=== PATIENT | male | born 1980 | race Caucasian/White ===

== ENCOUNTER → 2021-11-28 | Outpatient (CLI) | payer OTHER ==
--- NOTE | 2021-11-28 14:22 | XR ---
EXAMINATION TYPE: XR shoulder complete LT DATE OF EXAM: 11/28/2021 COMPARISON: NONE INDICATION: Lifting injury. Pain TECHNIQUE: 3 views of the left shoulder FINDINGS: Mild degenerative changes of the acromioclavicular joint. Unremarkable glenohumeral articulation. No humeral head dislocation or significant subluxation. No definite acute fracture line identified. No signs of rotator cuff calcific tendinitis. Maintained acromiohumeral distance. IMPRESSION: No definite acute fracture or dislocation. Soft tissue injury cannot be excluded by this x-ray.
== END | disposition home or self-care (01) ==
LOC: RADXRMAIN 13:10
PROVIDERS: ATTEND Emergency Medicine
DX: S46.012A Strain of muscle(s) and tendon(s) of the rotator cuff of left shoulder, initial encounter (principal); X58.XXXA Exposure to other specified factors, initial encounter

== ENCOUNTER → 2021-12-17 | Outpatient (CLI) | payer OTHER ==
--- NOTE | 2021-12-18 03:12 | MR ---
EXAMINATION TYPE: MR shoulder LT wo con DATE OF EXAM: 12/17/2021 COMPARISON: None HISTORY: Patient had shoulder injury to tendon/rotator cuff Multiplanar multiecho imaging of the left shoulder with no contrast. There is some spurring at the AC joint. There is minimal subacromial impingement on the supraspinatus muscle and tendon. The supraspinatus tendon appears intact. No retraction. The glenoid boni appear intact. Subscapularis tendon is intact. Biceps tendon appears normal. No valente dence of any significant shoulder joint effusion. There is increased fluid signal in the supraspinatus muscle on the inferior aspect that could relate to a tear. There is also some increased fluid signal in the subscapularis muscle adjacent to the scap antonieta. No evidence of a fracture. No evidence of focal bone destruction. IMPRESSION: There is spurring at the AC joint with with increased fluid mild subacromial impingement. No evidence of rotator cuff tear. Increased fluid signal in the supraspinatus muscle and subscapularis muscle adjacent to the scapula a nd consistent with myositis and muscle tear.
== END | disposition home or self-care (01) ==
LOC: RADMRIMAIN 20:22
PROVIDERS: ATTEND Emergency Medicine
DX: S46.012D Strain of muscle(s) and tendon(s) of the rotator cuff of left shoulder, subsequent encounter (principal); X58.XXXD Exposure to other specified factors, subsequent encounter